=== PATIENT | female | born 1990 | race Caucasian/White ===

== ENCOUNTER 2017-10-05 02:25 | Inpatient (IN) | payer OTHER ==
[2017-10-05] MEDS ORDERED: DEXTROSE 5%-LACTATED RINGERS 1,000 ML IV SCH (07:35)
[2017-10-05] MEDS ORDERED: AMPICILLIN - 2 GM in SODIUM CHLORIDE 100 ML IVPB ONE (08:15)
[2017-10-05] MEDS ORDERED: TUBERCULIN PPD 5 TU/0.1ML SYRINGE (IN PATIENT USE ONLY) ID ONE (08:30)
[2017-10-05 08:51] LABS: BASO % 0.3 % (0-2.0); EOS % 1.6 % (0-4.5); HEMATOCRIT 29.5 % (32.4-45.2); HEMOGLOBIN 9.5 GM/dL (10.7-15.3); LYMPH % 19.8 % (8-40); MCH 27.1 pg (25.7-33.7); MEAN CELL VOLUME 84.8 fl (80-96); MEAN PLT VOLUME 8.1 fl (7.5-11.1); MONO % 13.5 % (3.8-10.2); NEUT % 64.8 % (42.8-82.8); PLATELET COUNT 277 K/MM3 (134-434); RBC 3.49 M/mm3 (3.60-5.2); RDW 15.8 % (11.6-15.6); WHITE BLOOD COUNT 13.8 K/mm3 (4.0-10.0)
--- NOTE | 2017-10-05 08:54 | HP ---
Past Medical History - Primary Care Physician PCP:: Jackie Tobar - Admission Chief Complaint: strong contractions and leaking fluid History of Present Illness: 27 y/o P2 female at 40 weeks gestation here in labor. Pt states she had contractions overnight, was seen in hospital and sent home as her cervix was closed. Pt states the contractions increased in strength at around 6 am and she broke her water around 7:30 am. Pt is now s/p stadol/phenergan for pain and tolerating contractions. Also s/p ampicillin for GBS positivity. 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 Weeks Gestation by Dates: 40.1 ...EDC by Dates: 10/04/17 ...EDC by Sono: 10/05/17 Heme/Onc: No: Anemia, Sickle Cell Disease Infectious Disease: No: HIV, MRSA, STD's Psych: No: Anxiety, Bipolar, Depression - Past Surgical History Past Surgical History: Yes: None Hx Myomectomy: No Hx Transabdominal Cerclage: No - Smoking History Smoking history: Never smoked Aproximately how many cigarettes per day: 0 - Alcohol/Substance Use Hx Alcohol Use: No - Social History Usual Living Arrangement: Yes: With Spouse History of Recent Travel: No Home Medications - Allergies Allergies/Adverse Reactions: Allergies Allergy/AdvReac Type Severity Reaction Status Date / Time No Known Allergies Allergy Verified 10/05/17 08:10 - Home Medications Home Medications: Ambulatory Orders No122/Iron/Folic Acid [ Multi Tablet] 1 each PO DAILY 06/11/15 Review of Systems - Review of Systems Constitutional: reports: No Symptoms Eyes: reports: No Symptoms HENT: reports: No Symptoms Neck: reports: No Symptoms Cardiovascular: reports: No Symptoms Respiratory: reports: No Symptoms Gastrointestinal: reports: No Symptoms Genitourinary: reports: Other (leaking vaginal fluid). denies: Vaginal Bleeding Breasts: reports: No Symptoms Reported Musculoskeletal: reports: No Symptoms Integumentary: reports: No Symptoms Neurological: reports: No Symptoms Psychiatric: reports: No Symptoms Physical Exam - Maternity Vital Signs: Vital Signs Temperature 98 F 10/05/17 03:12 Pulse Rate 75 10/05/17 03:12 Respiratory Rate 20 10/05/17 03:12 Blood Pressure 120/55 10/05/17 03:12 O2 Sat by Pulse Oximetry (%) Constitutional: Yes: Well Nourished, Mild Distress (with contraction pain) HENT: Yes: Atraumatic, Normocephalic Breast(s): Yes: WNL - Abdominal Exam/OB Fundal Height: 40 Number of Fetuses: Single Presentation: Vertex Contractions: Yes Regularity: Regular Intensity: Strong Category: I Accelerations: Uniform Decelerations: None - Vaginal Exam/OB Vaginal Bleediing: No Dilatation (cm): 8.5 Effacement (%): 80 Amniotic Membrane Status: Ruptured Amniotic Fluid: Yes: Clear Presentation: Vertex/Position Station: -3 - Physical Exam Integumentary: Yes: WNL ...Motor Strength: WNL Psychiatric: Yes: Alert, Oriented Hemorrhage Risk Assessment - Risk Factors Medium Risk Factors: Yes: None High Risk Factors: Yes: None Risk Score: 1 Risk Level: Medium Risk Problem List - Problems (1) Term , repeat Code(s): Z34.90 - ENCNTR FOR SUPRVSN OF NORMAL , UNSP, UNSP TRIMESTER (2) Active labor at term Code(s): ZDH0580 - (3) GBS (group B Streptococcus carrier), +RV culture, currently Code(s): O99.820 - STREPTOCOCCUS B CARRIER STATE COMPLICATING Assessment/Plan 27 y/o P2 female at 40 weeks in active labor - FHTS cat 1 - admit to L&D, IV fluids, analgesia prn - Ampicillin for GBS PPx - anticipate
[2017-10-05 08:55] VITALS: BMI 32.4
[2017-10-05 09:05] LABS: INR 0.97 (0.82-1.09)
[2017-10-05 09:08] LABS: ACTIVATED PTT 24.4 SECONDS (26.9-34.4)
[2017-10-05] MEDS ORDERED: PROMETHAZINE HCL 25 MG/1 ML VIAL IVPB ONE (09:15)
[2017-10-05] MEDS ORDERED: BUTORPHANOL TARTRATE 1 MG/ML VIAL IVPUSH ONE (09:15)
[2017-10-05 09:19] LABS: ANION GAP 11 (8-16); BLOOD UREA NITROGEN 6 mg/dL (7-18); CALCIUM 8.3 mg/dL (8.5-10.1); CHLORIDE 108 mmol/L (98-107); CO2 21 mmol/L (21-32); POTASSIUM 3.4 mmol/L (3.5-5.1); SODIUM 140 mmol/L (136-145)
[2017-10-05 09:22] LABS: CREATININE 0.5 mg/dL (0.55-1.02); GLUCOSE,RANDOM 98 mg/dL (74-106)
--- NOTE | 2017-10-05 10:32 | PN ---
Ante-Partal Exam - Subjective Subjective: Pt feeling pressure to push. Vital Signs: Vital Signs Temperature 98.0 F 10/05/17 10:17 Pulse Rate 77 10/05/17 10:17 Respiratory Rate 20 10/05/17 10:17 Blood Pressure 110/54 10/05/17 10:17 O2 Sat by Pulse Oximetry (%) Bleeding: No Headache: No Visual changes: No Right upper quadrant pain: No Pain (scale 1-10): 8 - Contractions Contractions: Yes Regularity: Regular Intensity: Strong - Exam during Labor Heart Rate: 125 Variability: Moderate Category: II Monitor Accelerations: Present Monitor Decelerations: Variable (nonrecurrent variable decelerations) Exam: Vaginal Dilatation (cm): 9 Effacement (%): 90 Amniotic Membrane Status: Ruptured Presentation: Vertex Station: -1 - Assessment/Plan Assessment/Plan: 27 y/o with SIUP at 40.1 weeks, labor - FHTS cat 2, pt progressing, continue to monitor - expectant management for now - GBS positive, continue ampicillin for GBS PPx
--- NOTE | 2017-10-05 12:26 | PN ---
Delivery - Delivery Vaginal Delivery: No Problems Type of Anesthesia: None (stadol/phenergan IV) Episiotomy/Laceration: None EBL (cc): 350 Delivery, Single - Stages of Labor Date of Delivery: 10/05/17 Time of Delivery: 11:37 Date Placenta Delivered: 10/05/17 Time Placenta Delivered: 12:18 Placenta: Yes: Manual Removal - Condition of Infant Engineer Process/Secretary Administrative Assistant Present: No Gender: Female Position: Right, OP - 1 Minute Total Score: 9 5 Minutes Total Score: 9 - Feeding Plan Initial Plan: Exclusive throughout hospitalization Remarks - Remarks Remarks: over intact perineum from ROP position anterior shoulder (left) delivered with ease along with remainder of 3vc noted, clamped and cut mouth/nose bulb suctioned after delivery retained placenta requiring manual extraction - bedside ultrasound completed s/ p extraction revealing thin endometrial stripe, bleeding stable s/p extraction sponge count correct mom stable baby to well baby nursery
[2017-10-05] MEDS ORDERED: BISACODYL 10 MG SUPP.RECT RC PRN (12:27)
[2017-10-05] MEDS ORDERED: oxyCODONE HCL 5 MG TABLET PO PRN (12:27)
[2017-10-05] MEDS ORDERED: WITCH HAZEL 50% (TUCKS) 40 PAD/JAR PAD TP PRN (12:27)
[2017-10-05] MEDS ORDERED: BENZOCAINE 20% 57 GM BOTTLE TP PRN (12:27)
[2017-10-05] MEDS ORDERED: METHYLERGONOVINE MALEATE 0.2 MG/1 ML AMP IM PRN (12:27)
[2017-10-05] MEDS ORDERED: BENZOCAINE 28 GM HEMORRHOIDAL OINTMENT PR PRN (12:27)
[2017-10-05] MEDS ORDERED: ceFAZolin 2 GRAM PREMIX BAG IVPB ONE (12:29)
[2017-10-05] MEDS ORDERED: BUTORPHANOL TARTRATE 1 MG/ML VIAL IVPB ONE (12:30)
[2017-10-05] MEDS ORDERED: OXYTOCIN 20 UNITS in 0.9% NS 20 UNIT/1,000 ML INFUS.BAG IV SCH (12:45)
[2017-10-05] MEDS ORDERED: CEFAZOLIN 2 GM/D5W 2 GM/50 ML ML IVPB ONE (12:45)
[2017-10-05] MEDS ORDERED: AMPICILLIN - 1 GM in SODIUM CHLORIDE 100 ML IVPB SCH (13:07)
[2017-10-05] MEDS: ACETAMINOPHEN 325 MG TABLET (FP) PO PRN (21:54)
[2017-10-05] MEDS ORDERED: SENNOSIDES/DOCUSATE COMBO (SENNA PLUS) TABLET (UD) PO SCH (22:00)
[2017-10-06] MEDS: ACETAMINOPHEN 325 MG TABLET (FP) PO PRN (05:17)
--- NOTE | 2017-10-06 07:55 | PN ---
Post Progress Note - Subjective Subjective: Pt seen/evaluated and doing well. Pain controlled, tolerating diet, ambulating , voiding, VB minimal. No complaints. Type of Delivery: Vital Signs: Vital Signs Temperature 98.2 F 10/06/17 05:20 Pulse Rate 71 10/06/17 05:20 Respiratory Rate 18 10/06/17 05:20 Blood Pressure 95/42 10/06/17 05:20 O2 Sat by Pulse Oximetry (%) 99 10/05/17 13:30 Uterus: Yes: Fundus Firm Abdomen/GI: Yes: Abdomen soft Lochia: Yes: Rubra Lochia, amount: Small Extremities: Yes: Calves non-tender. No: Edema Perineum: Yes: Intact Activity: Ambulating - Labs Labs: CBC WBC 13.8 K/mm3 (4.0-10.0) H D 10/05/17 08:25 RBC 3.49 M/mm3 (3.60-5.2) L 10/05/17 08:25 Hgb 9.5 GM/dL (10.7-15.3) L D 10/05/17 08:25 Hct 29.5 % (32.4-45.2) L D 10/05/17 08:25 MCV 84.8 fl (80-96) 10/05/17 08:25 MCH 27.1 pg (25.7-33.7) 10/05/17 08:25 MCHC 32.0 g/dl (32.0-36.0) 10/05/17 08:25 RDW 15.8 % (11.6-15.6) H 10/05/17 08:25 Plt Count 277 K/MM3 (134-434) 10/05/17 08:25 MPV 8.1 fl (7.5-11.1) 10/05/17 08:25 Neutrophils % 64.8 % (42.8-82.8) 10/05/17 08:25 Lymphocytes % 19.8 % (8-40) D 10/05/17 08:25 Monocytes % 13.5 % (3.8-10.2) H D 10/05/17 08:25 Eosinophils % 1.6 % (0-4.5) 10/05/17 08:25 Basophils % 0.3 % (0-2.0) D 10/05/17 08:25 Nucleated RBC % 0 % (0-0) 10/05/17 08:25 Problem List - Problems (1) Term , repeat Code(s): Z34.90 - ENCNTR FOR SUPRVSN OF NORMAL , UNSP, UNSP TRIMESTER (2) Active labor at term Code(s): TSH4695 - (3) GBS (group B Streptococcus carrier), +RV culture, currently Code(s): O99.820 - STREPTOCOCCUS B CARRIER STATE COMPLICATING (4) Vaginal delivery Code(s): O80 - ENCOUNTER FOR FULL-TERM UNCOMPLICATED DELIVERY Assessment/Plan 27 y/o PPD#1 s/p normal - AFVSS - Hgb pending - regular diet, PO pain meds - encourage ambulation - routine post care
--- NOTE | 2017-10-06 07:56 | DS ---
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 Signs: Vital Signs Temperature 98.2 F 10/06/17 05:20 Pulse Rate 71 10/06/17 05:20 Respiratory Rate 18 10/06/17 05:20 Blood Pressure 95/42 10/06/17 05:20 O2 Sat by Pulse Oximetry (%) 99 10/05/17 13:30 Labs: CBC, BMP 10/05/17 08:25 Delivery - Delivery Vaginal Delivery: No Problems Type of Anesthesia: None Episiotomy/Laceration: None EBL (cc): 350 Delivery, Single - Stages of Labor Date 1st Stage Initiatied: 10/05/17 Time 1st Stage Initiated: 06:00 Date 2nd Stage Initiated: 10/05/17 Time 2nd Stage Initiated: 11:25 Date of Delivery: 10/05/17 Time of Delivery: 11:37 Time Placenta Delivered: 12:18 Placenta: Yes: Manual Removal - Condition of Infant Statement Request Clerk/Paper Sorter And Counter Present: No Gender: Female Weight: 9 lb 9 oz Position: Right, OP Total Hours ROM (Hrs/Mins): 4/38 - 1 Minute Total Score: 9 5 Minutes Total Score: 9 - Feeding Plan Initial Plan: Exclusive throughout hospitalization Discharge Summary Reason For Visit: FOR DELIVERY Current Active Problems Active labor at term (Acute) GBS (group B Streptococcus carrier), +RV culture, currently (Acute) Term , repeat (Acute) Vaginal delivery (Acute) Procedures: Principal: Normal Hospital Course: Pt admitted on 10/05 in labor, underwent a normal with a retained placenta that required manual removal. Otherwise patient had uncomplicated delivery and post course and was discharged home in stable condition on post day 2. Condition: Good - Instructions Referrals: Marissa Vega DO [Staff Physician] - Jackie Tobar MD [Staff Physician] - - Home Medications Comprehensive Discharge Medication List: Ambulatory Orders No122/Iron/Folic Acid [ Multi Tablet] 1 each PO DAILY 06/11/15
[2017-10-06 08:04] LABS: BASO % 0.4 % (0-2.0); EOS % 1.8 % (0-4.5); HEMATOCRIT 26.5 % (32.4-45.2); HEMOGLOBIN 8.7 GM/dL (10.7-15.3); LYMPH % 15.7 % (8-40); MCH 28.8 pg (25.7-33.7); MCHC 32.7 g/dl (32.0-36.0); MEAN CELL VOLUME 88.1 fl (80-96); MEAN PLT VOLUME 7.9 fl (7.5-11.1); MONO % 13.2 % (3.8-10.2); NEUT % 68.9 % (42.8-82.8); PLATELET COUNT 244 K/MM3 (134-434); RBC 3.01 M/mm3 (3.60-5.2); RDW 15.5 % (11.6-15.6); WHITE BLOOD COUNT 18.9 K/mm3 (4.0-10.0)
[2017-10-06] MEDS: PRENATAL VITAMINS W/ FOLIC ACID TABLET (FP) PO SCH (09:56)
[2017-10-06] MEDS: FERROUS SO4 325 MG TABLET (FP) PO SCH ×2 (09:57→21:39)
[2017-10-06] MEDS: IBUPROFEN 600 MG TABLET (FP) PO PRN ×2 (14:51→21:39)
[2017-10-06 22:08] VITALS: PULSE 68
[2017-10-07 08:53] VITALS: BP 118/67; TEMP 98.3
[2017-10-07] MEDS: PRENATAL VITAMINS W/ FOLIC ACID TABLET (FP) PO SCH (10:09)
[2017-10-07] MEDS: FERROUS SO4 325 MG TABLET (FP) PO SCH (10:09)
--- NOTE | 2017-10-14 15:43 | PATH ---
Surgical Pathology Report Patient Name: IRAJ REEDER Med. Rec. #: [id number] /Age/Gender: 1990 (Age: 27) / F Account: [id number] Location: [facility] OBS/SEISMOGRAPHER Taken: 10/05/2017 Received: 10/08/2017 Reported: 10/14/2017 Physicians: Marissa Vega M.D. Specimen(s) Received FRAGMENTED RETAINED PLACENTA Clinical History G2 G3, patient admitted for labor Final Diagnosis FRAGMENTED RETAINED PLACENTA, MANUAL REMOVAL: FRAGMENTED THIRD TRIMESTER PLACENTA. TRIVASCULAR CORD. MEMBRANES WITH NO DIAGNOSTIC ABNORMALITIES. Electronically Signed Shea Vanegas M.D. Gross Description Received fresh labeled "placenta," is a 632 g, 18.0 x 15.5 x 6.0 cm aggregate of abundant portions of fragmented placenta. The membranes are dubon and translucent with focal opacities. Membrane insertion cannot be determined. The umbilical cord measures 34 cm in length and averages 1.2 cm in diameter. The umbilical cord insertion site cannot be determined. No true knots or strictures are identified. Cut surface of the umbilical cord reveals 3 vessels. The identifiable portions of surface are dubon macdonald with moderate fibrin deposition and appropriate caliber vessels. The maternal surface is red-brown, markedly fragmented and disrupted. Sectioning reveals red-brown, spongy parenchyma. Clothes Drier Repairer sections are submitted in 4 cassettes as follows: 1-membrane roll and umbilical cord; [id number]. /10/11/2017 saudi10/11/2017
== END 2017-10-07 12:25 | disposition home or self-care (01) | DRG 767 ==
LOC: JDEL 02:25 → JLDR 07:35 → J3W 14:08
PROVIDERS: ADMIT Obstetrics & Gynecology; ATTEND Obstetrics & Gynecology
PROC: 10E0XZZ Delivery of Products of Conception, External Approach (ICD-10-PCS; principal; 2017-10-05)
PROC: 10D17Z9 Manual Extraction of Products of Conception, Retained, Via Natural or Artificial Opening (ICD-10-PCS; 2017-10-05)
DX: O48.0 Post-term pregnancy (principal); O73.0 Retained placenta without hemorrhage; Z37.0 Single live birth; Z3A.40 40 weeks gestation of pregnancy
CPT/HCPCS: 36415; 59409; 80048; 85025; 85610; 85730; 86593; 86850; 86900; 86901; 87389; 88307-TC

== ENCOUNTER 2019-03-31 18:50 | Inpatient (IN) | payer BC ==
[2019-03-31 20:03] LABS: BASO % 0.3 % (0-2.0); EOS % 1.2 % (0-4.5); HEMATOCRIT 36.7 % (32.4-45.2); HEMOGLOBIN 11.9 GM/dL (10.7-15.3); LYMPH % 18.9 % (8-40); MCH 28.8 pg (25.7-33.7); MCHC 32.5 g/dl (32.0-36.0); MEAN CELL VOLUME 88.6 fl (80-96); MEAN PLT VOLUME 8.8 fl (7.5-11.1); NEUT % 66.6 % (42.8-82.8); PLATELET COUNT 230 K/MM3 (134-434); RBC 4.14 M/mm3 (3.60-5.2); RDW 17.9 % (11.6-15.6)
[2019-03-31 20:13] LABS: INR 0.98 (0.83-1.09); PROTHROMBIN TIME (PATIENT) 11.6 SEC (9.7-13.0)
[2019-03-31 20:16] LABS: ACTIVATED PTT 27.8 SECONDS (25.2-36.5)
[2019-03-31 20:22] VITALS: BMI 32.5
[2019-03-31 20:25] LABS: BLOOD UREA NITROGEN 6.8 mg/dL (7-18); CALCIUM 9.3 mg/dL (8.5-10.1); CREATININE 0.4 mg/dL (0.55-1.3); POTASSIUM 3.9 mmol/L (3.5-5.1)
[2019-03-31] MEDS: ELECTROLYTE-148 SOLN 1,000 ML IV SCH (20:25)
[2019-03-31] MEDS ORDERED: ONDANSETRON 4 MG/2 ML VIAL IVPUSH PRN (20:49)
[2019-03-31] MEDS ORDERED: morphine SULFATE/PF 0.5 MG/ML (2cc Syringe - QUVA) EP ONE (20:49)
[2019-03-31] MEDS ORDERED: morphine SULFATE/PF 0.5 MG/ML (2cc Syringe - QUVA) ONE (20:56)
[2019-03-31] MEDS ORDERED: CITRIC ACID/SODIUM CITRATE 30 ML UNIT-DOSE CUP PO ONE (20:58)
[2019-03-31] MEDS ORDERED: MIDAZOLAM HCL 2 MG/2 ML SINGLE DOSE VIAL ONE (21:46)
[2019-03-31] MEDS ORDERED: OXYTOCIN 20 UNITS in 0.9% NS 20 UNIT/1,000 ML INFUS.BAG IV ONE (22:19)
[2019-03-31] MEDS ORDERED: BENZOCAINE 28 GM HEMORRHOIDAL OINTMENT PR PRN (22:59)
[2019-03-31] MEDS ORDERED: IBUPROFEN 800 MG/8 ML IJ IVPB PRN (22:59)
[2019-03-31] MEDS ORDERED: BENZOCAINE 20% 57 GM BOTTLE TP PRN (22:59)
[2019-03-31] MEDS ORDERED: diphenhydrAMINE HCL 25 MG CAPSULE (FP) PO PRN (22:59)
[2019-03-31] MEDS ORDERED: oxyCODONE HCL 5 MG TABLET PO PRN ×2 (22:59)
[2019-03-31] MEDS ORDERED: WITCH HAZEL 50% (TUCKS) 40 PAD/JAR PAD TP PRN (22:59)
[2019-03-31] MEDS ORDERED: METHYLERGONOVINE MALEATE 0.2 MG/1 ML AMP IM PRN (22:59)
[2019-03-31] MEDS: OXYTOCIN 20 UNITS in 0.9% NS 20 UNIT/1,000 ML INFUS.BAG IV SCH (23:00)
--- NOTE | 2019-03-31 23:10 | OP ---
Operative Note - Note: Operative Date: 03/31/19 Pre-Operative Diagnosis: 40 weeks, labor, rom , transverese lie, sterlization Operation: primary LST c/s, BTL Findings: live baby boy, 9/9 transverse lie, Surgeon: Holland Carter Parts Fabricator: Martinez Barrera Anesthesiologist/DENTISTRY TEACHER: Jd Pugh Anesthesia: Spinal Specimens Removed: placenta, portion of RT and LT tube Estimated Blood Loss (mls): 500 Drains & Tubes with Location: tom Blood Volume Replaced (mls): 0 Operative Report Dictated: Yes
--- NOTE | 2019-04-01 00:15 | OP ---
DATE OF OPERATION: 03/31/2019 PREOPERATIVE DIAGNOSIS: 40 weeks, ruptured membrane, labor, transverse lie. POSTOPERATIVE DIAGNOSIS: 40 weeks, ruptured membrane, labor, transverse lie. PROCEDURE: Primary low segment transverse section and bilateral tubal ligation. SURGEON: Holland Carter M.D. ANESTHESIA: Spinal. ANESTHESIOLOGIST: Jd Pugh M.D. ESTIMATED BLOOD LOSS: 500 mL. FINDINGS: A live baby boy in transverse lie delivered at vertex without any difficulty. Apgars 9 and 9. OPERATION: Patient was taken to operating room with adequate epidural anesthesia. Abdomen and perineum were prepped and draped. Pfannenstiel abdominal skin incision was made. Abdominal wall was cut layer by layer until the peritoneum was exposed and incised. Upon entering the abdominal cavity, the lower uterine segment was identified, and uterovesical fold of the peritoneum was established. The bladder was pushed down. Then with the lower blade of the [place] retractor in the pelvis, a low transverse uterine incision was made. The incision extended laterally. Amniotic sac was entered. Clear fluid. Baby was in transverse position, which was converted to vertex and delivered in vertex without any difficulty. Placenta was delivered manually. Uterine cavity was cleared of all remaining tissue. Uterine incision was closed in 2 layers, the 1st layer with 0 Biosyn continuous suture, and the 2nd layer with 0 Biosyn imbricating the 1st layer. Bladder flap was closed with 0 Biosyn continuous suture. Both tubes and ovaries were checked and were normal. No active bleeding was seen. All the lap, sponge, and instrument counts were correct. The right tube was grasped with Cristina clamp. Right tube was doubly tied with 2-0 plain ties, and then mesosalpinx was , and portion of tube was removed, and endosalpinx was cauterized. Same procedure repeated for opposite tube. No active bleeding was seen. All the lap, sponge, and instrument counts were correct. Both ovaries were normal. Peritoneum was closed with 0 Biosyn continuous suture. Muscles were brought together interrupted suture with 0 Biosyn. Fascia was closed with 0 Biosyn continuous sutures, subcutaneous fat with interrupted sutures 0 Biosyn, and the skin was closed with 3-0 Vicryl subcuticular continuous suture. The patient tolerated the procedure well and left the OR in good condition. HOLLAND CARTER M.D. /[id number]
[2019-04-01] MEDS: CEFAZOLIN 1 GM/D5W 1 GM/50 ML BAG IVPB SCH ×2 (01:16→09:37)
[2019-04-01] MEDS ORDERED: DEXTROSE 5%-LACTATED RINGERS 1,000 ML IV SCH (07:00)
--- NOTE | 2019-04-01 07:55 | PN ---
Progress Note (short form) - Note Progress Note: pod 1 s/p primary LST c/s, btl doing well,has mild cramps, no excess vaginal bleeding CBC, BMP 03/31/19 19:45 03/31/19 19:45 Last Vital Signs Temp Pulse Resp BP Pulse Ox 97.8 F 66 18 103/59 L 100 04/01/19 05:36 04/01/19 05:36 04/01/19 06:00 04/01/19 05:36 03/31/19 23:05 abdomen soft, no distension, no cva , non tender incison dry, clean no calf tenderness no excess vaginal bleeding plan ambulate , cbc advance diet pain management
[2019-04-01 08:48] LABS: BASO % 0.4 % (0-2.0); EOS % 0.8 % (0-4.5); HEMATOCRIT 34.4 % (32.4-45.2); HEMOGLOBIN 11.6 GM/dL (10.7-15.3); LYMPH % 12.6 % (8-40); MCH 29.6 pg (25.7-33.7); MCHC 33.6 g/dl (32.0-36.0); MEAN PLT VOLUME 8.6 fl (7.5-11.1); MONO % 12.6 % (3.8-10.2); NEUT % 73.6 % (42.8-82.8); PLATELET COUNT 201 K/MM3 (134-434); RBC 3.91 M/mm3 (3.60-5.2); RDW 18.4 % (11.6-15.6); WHITE BLOOD COUNT 14.6 K/mm3 (4.0-10.0)
[2019-04-01] MEDS: OXYTOCIN 20 UNITS in 0.9% NS 20 UNIT/1,000 ML INFUS.BAG IV SCH (09:00)
[2019-04-01] MEDS: ENOXAPARIN NA (PORCINE) 40 MG/0.4 ML DISP.SYRIN SQ SCH (09:37)
[2019-04-01 10:38] LABS: RPR NONREACTIVE (NONREACTIVE)
[2019-04-01] MEDS: IBUPROFEN 600 MG TABLET (FP) PO PRN ×3 (12:09→21:14)
[2019-04-01] MEDS: SIMETHICONE 80 MG TAB.CHEW (FP) PO PRN ×2 (12:10→21:18)
[2019-04-01] MEDS: ACETAMINOPHEN 325 MG TABLET (FP) PO PRN ×3 (12:10→21:17)
[2019-04-01] MEDS ORDERED: BISACODYL 10 MG SUPP.RECT RC PRN (22:59)
[2019-04-02] MEDS: SIMETHICONE 80 MG TAB.CHEW (FP) PO PRN ×2 (01:41→15:46)
[2019-04-02] MEDS: IBUPROFEN 600 MG TABLET (FP) PO PRN ×4 (01:41→21:11)
[2019-04-02] MEDS: ACETAMINOPHEN 325 MG TABLET (FP) PO PRN ×4 (01:42→21:11)
[2019-04-02] MEDS: ELECTROLYTE-148 SOLN 1,000 ML IV SCH (02:10)
--- NOTE | 2019-04-02 07:40 | HP ---
Past Medical History - Primary Care Physician PCP:: Holland Carter - Admission Chief Complaint: 40 weeks, rom, labor, transvere lie , sterlization History of Present Illness: 28 yo f , 40.1 weeks, with SROM, in labor , transverse lie, confirmed by bedside sono, fhr cat 1, contraction q 2 min. advised c/s, risks discussed wants BTL, aware procedure is permanent and has small failure risks . and risks of ectopic History Source: Patient Limitations to Obtaining History: No Limitations - Past Medical History ...: 4 ...Para: 3 ...Term: 3 ...: 0 ...Spon : 0 ...Induced : 0 ...Multiple Gestation: 0 ...LMP: 06/22/18 ... Weeks Gestation by Dates: 40.1 ...EDC by Dates: 03/30/19 - Past Surgical History Past Surgical History: Yes: None Hx Myomectomy: No Hx Transabdominal Cerclage: No - Smoking History Smoking history: Never smoked Have you smoked in the past 12 months: No Aproximately how many cigarettes per day: 0 - Alcohol/Substance Use Hx Alcohol Use: No - Social History Usual Living Arrangement: Yes: With Spouse History of Recent Travel: No Home Medications - Allergies Allergies/Adverse Reactions: Allergies Allergy/AdvReac Type Severity Reaction Status Date / Time No Known Allergies Allergy Verified 03/31/19 19:47 - Home Medications Home Medications: Ambulatory Orders No122/Iron/Folic Acid [ Multi Tablet] 1 each PO DAILY 06/11/15 Ferrous Sulfate [Feosol] 325 mg PO BID #60 tablet 10/07/17 Ibuprofen [Motrin -] 600 mg PO QID #28 tablet 04/01/19 Review of Systems - Review of Systems Constitutional: reports: No Symptoms Eyes: reports: No Symptoms HENT: reports: No Symptoms Neck: reports: No Symptoms Cardiovascular: reports: No Symptoms Respiratory: reports: No Symptoms Gastrointestinal: reports: No Symptoms Genitourinary: reports: No Symptoms Breasts: reports: No Symptoms Reported Musculoskeletal: reports: No Symptoms Integumentary: reports: No Symptoms Neurological: reports: No Symptoms Endocrine: reports: No Symptoms Hematology/Lymphatic: reports: No Symptoms Psychiatric: reports: No Symptoms Physical Exam - Maternity Vital Signs: Vital Signs Temperature 98.0 F 11/20/19 22:00 Pulse Rate 79 04/01/19 22:00 Respiratory Rate 18 04/01/19 22:00 Blood Pressure 98/53 L 04/01/19 22:00 O2 Sat by Pulse Oximetry (%) 100 03/31/19 23:05 Constitutional: Yes: Well Nourished, No Distress, Calm Eyes: Yes: WNL, Conjunctiva Clear, EOM Intact HENT: Yes: WNL, Atraumatic, Normocephalic Neck: Yes: WNL, Supple, Trachea Midline Cardiovascular: Yes: WNL, Regular Rate and Rhythm Breast(s): Yes: WNL - Abdominal Exam/OB Fundal Height: 40 Number of Fetuses: Single Presentation: Transverse Contractions: Yes Regularity: Regular Intensity: Mod/Strong Monitor Mode: External Heart Rate Location: Midline Category: I Accelerations: Non-Uniform Decelerations: None - Vaginal Exam/OB Vaginal Bleediing: No Speculum Exam: No Dilatation (cm): 2 Effacement (%): 50 Nitrazine Test: Positive Amniotic Fluid: Yes: Clear Presentation: Transverse/Shoulder Station: -4 - Physical Exam Musculoskeletal: Yes: WNL Extremities: Yes: WNL Edema: Yes Edema: LLE: Trace, RLE: Trace Deep Tendon Reflex Grade: Normal +2 ...Motor Strength: WNL Psychiatric: Yes: WNL - Labs Lab Results: CBC, BMP 04/01/19 08:26 03/31/19 19:45 Hemorrhage Risk Assessment - Risk Factors Medium Risk Factors: Yes: Greater than 4 previous births Risk Score: 1 Risk Level: Medium Risk Problem List - Problems (1) Post term over 40 weeks Code(s): O48.0 - POST-TERM (2) Labor established Code(s): FRM1553 - (3) Transverse lie of fetus Code(s): O32.2XX0 - MATERNAL CARE FOR TRANSVERSE AND OBLIQUE LIE, UNSP Qualifiers: Fetus number: single or unspecified fetus Qualified Code(s): O32.2XX0 - Maternal care for transverse and oblique lie, not applicable or unspecified (4) Sterilization Code(s): Z30.2 - ENCOUNTER FOR STERILIZATION Assessment/Plan c/section, BTL
--- NOTE | 2019-04-02 07:49 | PN ---
Post Progress Note - Subjective Subjective: Patient without acute complaints. Reports tolerating oral intake without nausea or vomiting. Ambulating without dizziness. Denies fevers or chills. Pain well controlled with oral pain medication. Passing flatus. Post Day: 2 Type of Delivery: Primary C/S Vital Signs: Vital Signs Temperature 98.0 F 04/01/19 22:00 Pulse Rate 79 04/01/19 22:00 Respiratory Rate 18 04/01/19 22:00 Blood Pressure 98/53 L 04/01/19 22:00 O2 Sat by Pulse Oximetry (%) 100 03/31/19 23:05 Breast Exam: Yes: Soft Uterus: Yes: Fundus Firm Incision: Yes: Dressing dry and intact Abdomen/GI: Yes: Abdomen soft Lochia: Yes: Rubra Lochia, amount: Small Extremities: Yes: Calves non-tender Perineum: Yes: Intact Activity: Other (in bed) - Labs Labs: CBC WBC 14.6 K/mm3 (4.0-10.0) H 04/01/19 08:26 RBC 3.91 M/mm3 (3.60-5.2) 04/01/19 08:26 Hgb 11.6 GM/dL (10.7-15.3) 04/01/19 08:26 Hct 34.4 % (32.4-45.2) 04/01/19 08:26 MCV 88.0 fl (80-96) 04/01/19 08:26 MCH 29.6 pg (25.7-33.7) 04/01/19 08:26 MCHC 33.6 g/dl (32.0-36.0) 04/01/19 08:26 RDW 18.4 % (11.6-15.6) H 04/01/19 08:26 Plt Count 201 K/MM3 (134-434) 04/01/19 08:26 MPV 8.6 fl (7.5-11.1) 04/01/19 08:26 Absolute Neuts (auto) 10.7 K/mm3 (1.5-8.0) H 04/01/19 08:26 Neutrophils % 73.6 % (42.8-82.8) 04/01/19 08:26 Lymphocytes % 12.6 % (8-40) D 04/01/19 08:26 Monocytes % 12.6 % (3.8-10.2) H 04/01/19 08:26 Eosinophils % 0.8 % (0-4.5) 04/01/19 08:26 Basophils % 0.4 % (0-2.0) 04/01/19 08:26 Nucleated RBC % 0 % (0-0) 04/01/19 08:26 Assessment/Plan 28yo P4 s/p 1 c/section VSS, Afebrile will follow h/h Encourage ambulation
[2019-04-02] MEDS: ENOXAPARIN NA (PORCINE) 40 MG/0.4 ML DISP.SYRIN SQ SCH (09:56)
[2019-04-02] MEDS ORDERED: SENNOSIDES/DOCUSATE COMBO (SENNA PLUS) TABLET (UD) PO PRN (22:00)
[2019-04-03] MEDS: ACETAMINOPHEN 325 MG TABLET (FP) PO PRN ×4 (01:02→21:35)
[2019-04-03] MEDS: SIMETHICONE 80 MG TAB.CHEW (FP) PO PRN ×2 (01:02→21:34)
[2019-04-03] MEDS: IBUPROFEN 600 MG TABLET (FP) PO PRN ×4 (01:02→21:34)
--- NOTE | 2019-04-03 07:37 | PN ---
Progress Note (short form) - Note Progress Note: pod 3 s/p c/s ,doing well, passing gas , ambulating, no excess vaginal bleeding CBC, BMP 04/01/19 08:26 03/31/19 19:45 Last Vital Signs Temp Pulse Resp BP Pulse Ox 98.0 F 79 20 106/61 100 04/03/19 07:34 04/03/19 07:34 04/03/19 07:34 04/03/19 07:34 03/31/19 23:05 abdomen soft, no distension, no cva incision dry, clean ,healing well no calf tenderness , no edema plan ambulate, cbc today plan for d/c home in am Problem List - Problems (1) Post term over 40 weeks Code(s): O48.0 - POST-TERM (2) Labor established Code(s): EPQ0171 - (3) Transverse lie of fetus Code(s): O32.2XX0 - MATERNAL CARE FOR TRANSVERSE AND OBLIQUE LIE, UNSP Qualifiers: Fetus number: single or unspecified fetus Qualified Code(s): O32.2XX0 - Maternal care for transverse and oblique lie, not applicable or unspecified (4) Sterilization Code(s): Z30.2 - ENCOUNTER FOR STERILIZATION
[2019-04-03 09:11] LABS: BASO % 0.5 % (0-2.0); EOS % 2.8 % (0-4.5); HEMATOCRIT 32.2 % (32.4-45.2); HEMOGLOBIN 10.6 GM/dL (10.7-15.3); LYMPH % 16.9 % (8-40); MCH 29.3 pg (25.7-33.7); MCHC 33.1 g/dl (32.0-36.0); MEAN CELL VOLUME 88.6 fl (80-96); MEAN PLT VOLUME 8.4 fl (7.5-11.1); MONO % 11.3 % (3.8-10.2); NEUT % 68.5 % (42.8-82.8); PLATELET COUNT 244 K/MM3 (134-434); RBC 3.63 M/mm3 (3.60-5.2); RDW 18.1 % (11.6-15.6); WHITE BLOOD COUNT 11.8 K/mm3 (4.0-10.0)
[2019-04-03] MEDS: ENOXAPARIN NA (PORCINE) 40 MG/0.4 ML DISP.SYRIN SQ SCH (10:25)
[2019-04-04] MEDS: SIMETHICONE 80 MG TAB.CHEW (FP) PO PRN ×2 (02:29→08:29)
[2019-04-04] MEDS: IBUPROFEN 600 MG TABLET (FP) PO PRN ×2 (02:29→08:29)
[2019-04-04] MEDS: ACETAMINOPHEN 325 MG TABLET (FP) PO PRN ×2 (02:30→08:30)
[2019-04-04 08:32] VITALS: BP 98/64; PULSE 66; TEMP 97.8
[2019-04-04] MEDS: ENOXAPARIN NA (PORCINE) 40 MG/0.4 ML DISP.SYRIN SQ SCH (09:48)
--- NOTE | 2019-04-04 12:24 | DS ---
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 Vital Signs: Vital Signs Temperature 97.8 F 04/04/19 08:31 Pulse Rate 66 04/04/19 08:31 Respiratory Rate 18 04/04/19 08:31 Blood Pressure 98/64 04/04/19 08:31 O2 Sat by Pulse Oximetry (%) 100 03/31/19 23:05 Constitutional: Yes: Well Nourished, No Distress, Calm Eyes: Yes: WNL, Conjunctiva Clear HENT: Yes: WNL, Atraumatic, Normocephalic Neck: Yes: WNL, Supple, Trachea Midline Cardiovascular: Yes: WNL, Regular Rate and Rhythm Respiratory: Yes: WNL, Regular, CTA Bilaterally Gastrointestinal: Yes: WNL, Normal Bowel Sounds, Soft ...Rectal Exam: Yes: Deferred Renal/: Yes: WNL External Genitalia: Yes: Normal Internal Exam Deferred: Yes ....Post : Yes: Uterus firm, Uterus non-tender, Slight lochia rubra Breast(s): Yes: WNL Musculoskeletal: Yes: WNL Extremities: Yes: WNL Edema: Yes Edema: LLE: Trace, RLE: Trace Integumentary: Yes: WNL Neurological: Yes: WNL, Alert, Oriented ...Motor Strength: WNL Psychiatric: Yes: WNL, Alert, Oriented Labs: CBC, BMP 04/03/19 07:35 03/31/19 19:45 Delivery - Delivery Type of Anesthesia: Spinal Episiotomy/Laceration: None EBL (cc): 500 Delivery, Single - Stages of Labor Date 1st Stage Initiatied: 03/31/19 Time 1st Stage Initiated: 18:00 Date of Delivery: 03/31/19 Time of Delivery: 21:29 Time Placenta Delivered: 21:30 Placenta: Yes: Manual Removal - Condition of Infant Multicraft Operator/Underwear 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 Condition: Good - Instructions Diet, Activity, Other Instructions: regular diet, follow up office 1 week, if pain, fever,heavy vaginal bleeding call md Referrals: Holland Carter MD [Family Provider] - Disposition: HOME - Home Medications Comprehensive Discharge Medication List: Ambulatory Orders No122/Iron/Folic Acid [ Multi Tablet] 1 each PO DAILY 06/11/15 Ferrous Sulfate [Feosol] 325 mg PO BID #60 tablet 10/07/17 Ibuprofen [Motrin -] 600 mg PO QID #28 tablet 04/01/19 Prescription Drug Monitoring Program (I-STOP) results: I-STOP not reviewed
--- NOTE | 2019-04-08 18:44 | PATH ---
Surgical Pathology Report Patient Name: IRAJ REEDER [facility]. Rec. #: [id number] /Age/Gender: 1990 (Age: 28) / F Account: [id number] Location: [facility] OBS/BUTCHER HEAD Taken: 03/31/2019 Received: 04/01/2019 Reported: 04/08/2019 Physicians: Holland Carter M.D. Specimen(s) Received A: PLACENTA B: PORTION OF LEFT FALLOPIAN TUBE C: PORTION OF RIGHT FALLOPIAN TUBE Clinical History , 40.1 weeks, transverse lie in labor Final Diagnosis A. PLACENTA: THIRD TRIMESTER PLACENTA. TRIVASCULAR CORD. MEMBRANES WITH NO DIAGNOSTIC ABNORMALITIES. B. PORTION OF LEFT FALLOPIAN TUBE: COMPLETE CROSS SECTION OF THE FALLOPIAN TUBE LUMEN IDENTIFIED. C. PORTION OF RIGHT FALLOPIAN TUBE: COMPLETE CROSS SECTION OF THE FALLOPIAN TUBE LUMEN IDENTIFIED. Electronically Signed Shea Vanegas M.D. Gross Description A. The specimen is received fresh labeled placenta and is a 743 gram, 20.0 x 17.0 x 2.8 cm. placenta with attached membranes and umbilical cord. The attached membranes are dubon, translucent with focal opacities and insert marginally. The umbilical cord measures 33 cm. in length and averages 1.2 cm. in diameter. The cord inserts eccentrically, 5.5 cm. to the nearest margin. No true knots or strictures are identified. Cut surface of the umbilical cord reveals 3 vessels. The surface is rosales blue with moderate fibrin deposition and appropriate caliber vessels. The maternal surface is red-brown with focal defects. Sectioning reveals red-brown, spongy parenchyma. No lesions are identified. Kennel Aide sections are submitted in three cassettes as follows: 1- membrane rolls and umbilical cord; 2-3- full thickness sections of placenta. B. Received in formalin labeled "portion of left fallopian tube," is a 2.8 cm in length fimbriated fallopian tube. The outer surface is udbon rosales and smooth. Sectioning reveals an unremarkable lumen. Kennel Aide sections are submitted in 2 cassettes as follows: 1-fimbria; 2-cross sections of fallopian tube. C. Received in formalin labeled "portion of right fallopian tube," is a 3 cm in length fimbriated fallopian tube. The outer surface is dubon-macdonald and smooth. Sectioning reveals an unremarkable lumen. Kennel Aide sections are submitted in 2 cassettes as follows: 1-fimbria; 2-cross sections of fallopian tube. 04/03/2019 saudi04/03/2019
== END 2019-04-04 13:20 | disposition home or self-care (01) | DRG 785 ==
LOC: JDEL 18:50 → JLDR 18:51 → J3W 23:52
PROVIDERS: ADMIT Obstetrics & Gynecology; ATTEND Obstetrics & Gynecology
PROC: 10D00Z1 Extraction of Products of Conception, Low, Open Approach (ICD-10-PCS; principal; 2019-03-31)
PROC: 0UB70ZZ Excision of Bilateral Fallopian Tubes, Open Approach (ICD-10-PCS; 2019-03-31)
DX: O32.2XX0 Maternal care for transverse and oblique lie, not applicable or unspecified (principal); O48.0 Post-term pregnancy; Z3A.40 40 weeks gestation of pregnancy; Z30.2 Encounter for sterilization; Z37.0 Single live birth
CPT/HCPCS: 36415; 80048; 85025; 85610; 85730; 86593; 86850; 86900; 86901; 87389; 88302-TC; 88307-TC